=== PATIENT | female | born 1955 | race Caucasian/White ===

== ENCOUNTER 2023-09-27 09:06 | Outpatient (REF) | payer BC, SELFPAY ==
--- NOTE | 2023-09-27 07:30 | SKI_PTH ---
PATIENT: Shanda Pearson LOC: [facility] U#:[id number] AGE/SX: 67/F ROOM: RE09/27/[address]: Andres Winter MD : 1955 BED: DIS: 09/27/2023 SPEC #: [id number] RECD: 09/27/23 17:19 STATUS: DIANA REAshley #: [id number] NADEGE: 09/27/23 07:[address]: Andres Winter DEPT: Surgical Specimen RECD BY: Nikki Corado ENTERED: 09/27/23 17:19 SP TYPE: JOEL MAS DR: Tabatha Vaz Tissues: 1 - SKIN BIOPSY(SHAVE/PUNCH) Procedures: SKIN LEVEL 4 Comments: [id number]
== END 2023-09-27 09:07 | disposition home or self-care (01) ==
LOC: LBN 09:06
PROVIDERS: PCP Internal Medicine; Visit Provider Otolaryngology
DX: L98.8 Other specified disorders of the skin and subcutaneous tissue (principal)
CPT/HCPCS: 88305